=== PATIENT | female | born 1980 ===

== ENCOUNTER 2018-02-13 06:52 | Observation (INO) | payer SELFPAY ==
[2018-02-13 06:59] VITALS: BMI 29.4
[2018-02-13] MEDS ORDERED: Iohexol 240 (50 ml) PO ONE (07:25)
[2018-02-13] MEDS ORDERED: Sodium Chloride 0.9% 1,000 ML IV STA ×2 (07:25→15:43)
[2018-02-13 07:58] LABS: BASO # 0.1 K/uL (0.0-0.2); BASO % 0.6 % (0.0-2.0); EOS % 0.2 % (0.0-4.0); HEMOGLOBIN 13.9 g/dL (12.0-16.0); LYMPH # 2.6 K/uL (1.0-4.3); LYMPH % 16.8 % (20.0-40.0); MEAN CELL VOLUME 89.6 fl (81.0-99.0); MEAN CORPUSCULAR HEMOGLOBIN 30.1 pg (27.0-31.0); MEAN CORPUSCULAR HGB CONC 33.6 g/dL (33.0-37.0); MEAN PLATELET VOLUME 8.1 fl (7.2-11.7); MONO # 1.9 K/uL (0.0-0.8); MONO % 12.4 % (0.0-10.0); NEUT # 10.8 K/uL (1.8-7.0); RBC 4.63 Mil/uL (3.80-5.20); RED CELL DISTRIBUTION WIDTH 12.7 % (11.5-14.5); WHITE BLOOD COUNT 15.4 K/uL (4.8-10.8)
[2018-02-13 08:08] LABS: ALB/GLOB RATIO 1.3 (1.0-2.1); ALBUMIN 4.5 g/dL (3.5-5.0); ALT/SGPT 47 U/L (9-52); AST/SGOT 36 U/L (14-36); BLOOD UREA NITROGEN 8 mg/dl (7-17); CALCIUM 9.3 mg/dL (8.4-10.2); GFR NON-AFRICAN AMERICAN > 60; LIPASE 84 U/L (23-300)
[2018-02-13] MEDS ORDERED: Iohexol 240 (50 ml) ONE (08:10)
[2018-02-13 08:46] LABS: GRANULAR CAST 5 /lpf (0-1); SQUAMOUS EPITHIAL 13 /hpf (0-5); URINE BACTERIA OCC (<OCC); URINE BILIRUBIN NEGATIVE (NEGATIVE); URINE BLOOD NEGATIVE (NEGATIVE); URINE CLARITY SLIGHTY-CLOUDY (Clear); URINE COLOR YELLOW (YELLOW); URINE GLUCOSE (UA) NEG (Normal); URINE LEUKOCYTE ESTERASE NEG Leu/uL (Negative); URINE PROTEIN 30 mg/dL (NEGATIVE); URINE UROBILINOGEN 0.2-1.0 mg/dL (0.2-1.0)
[2018-02-13] MEDS ORDERED: Iohexol 300 100 ML IJ ONE (10:56)
[2018-02-13] MEDS ORDERED: Sodium Chloride 0.9% 100 ML ONE (10:57)
[2018-02-13] MEDS ORDERED: Piperacillin/Tazobact 4.5 GM in Sodium Chloride 0.9% 100 ML IVPB STA (11:47)
--- NOTE | 2018-02-13 11:49 | CT ---
Date of service: 02/13/2018 PROCEDURE: CT Abdomen and Pelvis with contrast HISTORY: LLQ pain x5 days COMPARISON: None. TECHNIQUE: Contrast dose: 98 ml Omnipaque 300 Radiation dose: Total exam DLP = 532 mGy-cm. This CT exam was performed using one or more of the following dose reduction techniques: Automated exposure control, adjustment of the mA and/or kV according to patient size, and/or use of iterative reconstruction technique. FINDINGS: LOWER THORAX: Unremarkable. LIVER: Hepatic steatosis. No gross lesion or ductal dilatation. GALLBLADDER AND BILE DUCTS: Unremarkable. PANCREAS: Unremarkable. No gross lesion or ductal dilatation. SPLEEN: Unremarkable. ADRENALS: Unremarkable. No mass. KIDNEYS AND URETERS: Right lower pole 1.8 cm cyst. No hydronephrosis. No solid mass. VASCULATURE: Unremarkable. No aortic aneurysm. BOWEL: Extensive descending colonic and sigmoid diverticulosis with severe short segment descending colonic wall thickening and surrounding parrot colic stranding. No obstruction. No gross mural thickening. APPENDIX: Normal appendix. PERITONEUM: Small fat containing umbilical hernia. No free fluid. No free air. LYMPH NODES: Unremarkable. No enlarged lymph nodes. BLADDER: Unremarkable. REPRODUCTIVE: Left adnexal mass with solid component measuring 5.6 x 4.6 cm and cystic component measuring 4.6 x 4.6 cm. BONES: No acute fracture. OTHER FINDINGS: None. IMPRESSION: Acute uncomplicated descending colonic diverticulitis. Left adnexal solid and cystic mass with solid component measuring up to 5.6 cm and cystic component measuring up to 4.6 cm[address] Findings conveyed to Dr. Monroy by Dr. Sy at 11:45 a.m. on 02/13/2018.
--- NOTE | 2018-02-13 13:27 | ED PDOC ---
HPI: Abdomen Time Seen by Provider: 02/13/18 07:15 Chief Complaint (Nursing): Abdominal Pain Chief Complaint (Provider): abdominal pain History Per: Patient History/Exam Limitations: no limitations Onset/Duration Of Symptoms: Days (5+) Location Of Pain/Discomfort: LLQ (radiating back) Quality Of Discomfort: Sharp Associated Symptoms: Nausea, Loss Of Appetite Exacerbating Factors: None Alleviating Factors: None Last Bowel Movement: Days Ago (2) Additional Complaint(s): 37yo female c/o left lower abdominal pain radiating to the back associated with loss appetite and dizziness, no prior history of similar pain. Menses normal, regular. Denies urinary symptoms, blood in stool admits to some recent atypical constipation. +loss appetite. Past Medical History Reviewed: Historical Data, Nursing Documentation, Vital Signs Vital Signs: Last Vital Signs Temp 99.1 F 02/13/18 11:53 Pulse 89 02/13/18 11:53 Resp 15 02/13/18 11:53 BP 120/73 02/13/18 11:53 Pulse Ox 100 02/13/18 11:53 - Medical History PMH: No Chronic Diseases - Surgical History Surgical History: No Surg Hx - Family History Family History: States: Unknown Family Hx - Living Arrangements Living Arrangements: With Family - Social History Current smoker - smoking cessation education provided: No - Home Medications Home Medications: Ambulatory Orders Medication Instructions Recorded Vit Calc,Iron,Folic 1 tab PO DAILY 02/13/18 [ Vitamins] - Allergies Allergies/Adverse Reactions: Allergies Allergy/AdvReac Type Severity Reaction Status Date / Time No Known Allergies Allergy Verified 02/13/18 07:12 Review of Systems Constitutional: Negative for: Fever ENT: Negative for: Throat Pain Cardiovascular: Negative for: Chest Pain Respiratory: Negative for: Shortness of Breath Gastrointestinal: Positive for: Nausea, Abdominal Pain, Constipation. Negative for: Diarrhea, Melena, Hematochezia Genitourinary Female: Negative for: Dysuria Musculoskeletal: Negative for: Neck Pain Skin: Negative for: Rash, Lesions Neurological: Negative for: Weakness, Numbness, Dizziness Psych: Negative for: Depression Physical Exam - Reviewed Nursing Documentation Reviewed: Yes Vital Signs Reviewed: Yes - Physical Exam Appears: Positive for: Well, Non-toxic, No Acute Distress Head Exam: Positive for: ATRAUMATIC, NORMAL INSPECTION, NORMOCEPHALIC Skin: Positive for: Normal Color, Warm, DRY Eye Exam: Positive for: EOMI, Normal appearance, PERRL ENT: Positive for: Normal ENT Inspection Neck: Positive for: Normal, Painless ROM Cardiovascular/Chest: Positive for: Regular Rate, Rhythm Respiratory: Positive for: CNT, Normal Breath Sounds Gastrointestinal/Abdominal: Positive for: Normal Exam, Soft Back: Positive for: Normal Inspection Extremity: Positive for: Normal ROM Neurologic/Psych: Positive for: Alert, Oriented - Laboratory Results Result Diagrams: 02/13/18 07:55 02/13/18 07:55 - ECG O2 Sat by Pulse Oximetry: 100 Medical Decision Making Medical Decision Making: CT ordered r/o diverticulitis Accession No. : [id number] Patient Name / ID : THEO SHARMA / [id number] Exam Date : 02/13/2018 11:11:27 ( Approved ) Study Comment : Sex / Age : F / 37Y Creator : Rogelio Mcgovern MD Dictator : Rogelio Mcgovern MD Auto Body Repair Technician : Dope Mixer : Rogelio Mcgovern MD Approver2 : Report Date : 02/13/2018 11:48:14 My Comment : Date of service: 02/13/2018 PROCEDURE: CT Abdomen and Pelvis with contrast HISTORY: LLQ pain x5 days COMPARISON: None. TECHNIQUE: Contrast dose: 98 ml Omnipaque 300 Radiation dose: Total exam DLP = 532 mGy-cm. This CT exam was performed using one or more of the following dose reduction techniques: Automated exposure control, adjustment of the mA and/or kV according to patient size, and/or use of iterative reconstruction technique. FINDINGS: LOWER THORAX: Unremarkable. LIVER: Hepatic steatosis. No gross lesion or ductal dilatation. GALLBLADDER AND BILE DUCTS: Unremarkable. PANCREAS: Unremarkable. No gross lesion or ductal dilatation. SPLEEN: Unremarkable. ADRENALS: Unremarkable. No mass. KIDNEYS AND URETERS: Right lower pole 1.8 cm cyst. No hydronephrosis. No solid mass. VASCULATURE: Unremarkable. No aortic aneurysm. BOWEL: Extensive descending colonic and sigmoid diverticulosis with severe short segment descending colonic wall thickening and surrounding parrot colic stranding. No obstruction. No gross mural thickening. APPENDIX: Normal appendix. PERITONEUM: Small fat containing umbilical hernia. No free fluid. No free air. LYMPH NODES: Unremarkable. No enlarged lymph nodes. BLADDER: Unremarkable. REPRODUCTIVE: Left adnexal mass with solid component measuring 5.6 x 4.6 cm and cystic component measuring 4.6 x 4.6 cm. BONES: No acute fracture. OTHER FINDINGS: None. IMPRESSION: Acute uncomplicated descending colonic diverticulitis. Left adnexal solid and cystic mass with solid component measuring up to 5.6 cm and cystic component measuring up to 4.6 cm[address] Findings conveyed to Dr. Monroy by Dr. Sy at 11:45 a.m. on 02/13/2018. US ordered to eval for ovarian mass Zosyn ordered for diverticulitis Accession No. : [id number] Patient Name / ID : THEO SHARMA / [id number] Exam Date : 02/13/2018 12:59:24 ( Approved ) Study Comment : Sex / Age : F / 37Y Creator : Rogelio Mcgovern MD Dictator : Rogelio Mcgovern MD Auto Body Repair Technician : Dope Mixer : Rogelio Mcgovern MD Approver2 : Report Date : 02/13/2018 14:37:56 My Comment : Date of service: 02/13/2018 HISTORY: L ovarian mass on CT COMPARISON: Correlations made to CT scan of the abdomen pelvis performed earlier the same day. TECHNIQUE: Grayscale, color Doppler and spectral evaluation the pelvis performed transabdominally and transvaginally. FINDINGS: UTERUS: Measures 8.5 x 5.2 x 5.0 cm. Retroverted. Normal in size and appearance. No fibroid or other mass lesion seen. ENDOMETRIUM: Measures 15 mm in diameter. Unremarkable. CERVIX: No cervical abnormality identified. RIGHT OVARY: Measures 3.6 x 2.3 x 3.1 cm. Complex structure within the right ovary measuring 2.3 x 1.3 x 1.9 cm. Normal flow. LEFT OVARY: Measures 5.8 x 6.6 x 3.9 cm. Simple appearing cyst measuring 4.7 x 3.2 x 5.0 cm. Solid rounded structure abutting the left ovary measuring 5.4 x 4.3 x 5.7 cm. Normal flow. FREE FLUID: No significant free fluid noted. OTHER FINDINGS: None. IMPRESSION: As seen on CT, solid left adnexal mass abutting the left ovary measuring 5.7 cm with 5.0 cm cystic structure within the ovary. Complex structure within the right ovary measuring 2.3 cm. 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 lactate 2.3 c/w severe sepsis. IVF ordered and repeat lactate ordered. d/w Dr Bosch GRAIN ROASTER states need diverticulitis to improve prior to any intervention, but GRAIN ROASTER will consult Disposition - Clinical Impression Clinical Impression: Diverticulitis, Leukocytosis, Ovarian mass - Patient ED Disposition Is Patient to be Admitted: Yes Counseled Patient/Family Regarding: Studies Performed, Diagnosis - Disposition Disposition Time: 13:30 Condition: FAIR Forms: [employer] ([employer]) - Pt Status Changed To: Hospital Disposition Of: Observation - POA Present On Arrival: None
--- NOTE | 2018-02-13 14:39 | US ---
Date of service: 02/13/2018 HISTORY: L ovarian mass on CT COMPARISON: Correlations made to CT scan of the abdomen pelvis performed earlier the same day. TECHNIQUE: Grayscale, color Doppler and spectral evaluation the pelvis performed transabdominally and transvaginally. FINDINGS: UTERUS: Measures 8.5 x 5.2 x 5.0 cm. Retroverted. Normal in size and appearance. No fibroid or other mass lesion seen. ENDOMETRIUM: Measures 15 mm in diameter. Unremarkable. CERVIX: No cervical abnormality identified. RIGHT OVARY: Measures 3.6 x 2.3 x 3.1 cm. Complex structure within the right ovary measuring 2.3 x 1.3 x 1.9 cm. Normal flow. LEFT OVARY: Measures 5.8 x 6.6 x 3.9 cm. Simple appearing cyst measuring 4.7 x 3.2 x 5.0 cm. Solid rounded structure abutting the left ovary measuring 5.4 x 4.3 x 5.7 cm. Normal flow. FREE FLUID: No significant free fluid noted. OTHER FINDINGS: None. IMPRESSION: As seen on CT, solid left adnexal mass abutting the left ovary measuring 5.7 cm with 5.0 cm cystic structure within the ovary. Complex structure within the right ovary measuring 2.3 cm.
[2018-02-13 15:30] LABS: VENOUS BLOOD GAS BASE EXCESS 0.5 mmol/L (0.0-2.0); VENOUS BLOOD GAS PCO2 41 mmHg (40-60); VENOUS BLOOD GAS PO2 27 mm/Hg (30-55)
[2018-02-13] MEDS: Sodium Chloride 0.9% 1,000 ML IV SCH (18:01)
[2018-02-13 18:44] LABS: VENOUS BLOOD GAS BASE EXCESS -1.3 mmol/L (0.0-2.0); VENOUS BLOOD GAS PCO2 40 mmHg (40-60); VENOUS BLOOD GAS PO2 31 mm/Hg (30-55); VENOUS BLOOD PH 7.38 (7.32-7.43)
[2018-02-13] MEDS: Piperacillin/Tazobact 3.375 GM in Sodium Chloride 0.9% 100 ML IVPB SCH (21:14)
[2018-02-14] MEDS: Sodium Chloride 0.9% 1,000 ML IV SCH ×2 (03:34→11:48)
[2018-02-14] MEDS: Piperacillin/Tazobact 3.375 GM in Sodium Chloride 0.9% 100 ML IVPB SCH ×4 (03:36→21:23)
[2018-02-14 06:34] LABS: BASO % 0.4 % (0.0-2.0); EOS # 0.1 K/uL (0.0-0.7); EOS % 0.8 % (0.0-4.0); HEMOGLOBIN 11.7 g/dL (12.0-16.0); LYMPH # 2.1 K/uL (1.0-4.3); LYMPH % 17.2 % (20.0-40.0); MEAN CELL VOLUME 89.7 fl (81.0-99.0); MEAN CORPUSCULAR HEMOGLOBIN 29.9 pg (27.0-31.0); MEAN CORPUSCULAR HGB CONC 33.3 g/dL (33.0-37.0); MEAN PLATELET VOLUME 8.2 fl (7.2-11.7); MONO # 1.3 K/uL (0.0-0.8); MONO % 10.6 % (0.0-10.0); NEUT # 8.5 K/uL (1.8-7.0); RBC 3.92 Mil/uL (3.80-5.20); RED CELL DISTRIBUTION WIDTH 12.8 % (11.5-14.5)
[2018-02-14 06:49] LABS: ALB/GLOB RATIO 1.1 (1.0-2.1); ALBUMIN 3.3 g/dL (3.5-5.0); ALT/SGPT 56 U/L (9-52); AST/SGOT 55 U/L (14-36); BLOOD UREA NITROGEN 5 mg/dl (7-17); CALCIUM 8.1 mg/dL (8.4-10.2); GFR NON-AFRICAN AMERICAN > 60
--- NOTE | 2018-02-14 10:42 | CP.PCM.HP ---
History of Present Illness - History of Present Illness History of Present Illness: pt admitted for diverticulitis and left ovarian mass/cyst and adnexal mass. w/ low grade fever. no n/v. + diarrhea. 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 Present on Admission - Present on Admission Any Indicators Present on Admission: No Review of Systems - Constitutional Constitutional: As Per HPI, Fever - Gastrointestinal Gastrointestinal: As Per HPI, Abdominal Pain, Diarrhea Past Patient History - Past Medical History & Family History Past Medical History?: Yes - Past Social History Smoking Status: Current Some Days Smoker - CARDIAC Hx Cardiac Disorders: No - PULMONARY Hx Respiratory Disorders: No - NEUROLOGICAL Hx Neurological Disorder: No - HEENT Hx HEENT Problems: No - RENAL Hx Chronic Kidney Disease: No - ENDOCRINE/METABOLIC Hx Endocrine Disorders: No - HEMATOLOGICAL/ONCOLOGICAL Hx Blood Disorders: No Hx AIDS: No Hx Human Immunodeficiency Virus (HIV): No - INTEGUMENTARY Hx Dermatological Problems: No - MUSCULOSKELETAL/RHEUMATOLOGICAL Hx Musculoskeletal Disorders: No Hx Falls: No - GASTROINTESTINAL Hx Gastrointestinal Disorders: Yes Hx Diverticulitis: Yes Other/Comment: Diverticulosis - GENITOURINARY/GYNECOLOGICAL Hx Genitourinary Disorders: Yes Other/Comment: h/o ectopic more than 3 years ago treated with methotrexate - PSYCHIATRIC Hx Psychophysiologic Disorder: No Hx Substance Use: Yes (use marijuana multiple times a week) - SURGICAL HISTORY Hx Surgeries: No - ANESTHESIA Hx Anesthesia: No Meds Allergies/Adverse Reactions: Allergies Allergy/AdvReac Type Severity Reaction Status Date / Time No Known Allergies Allergy Verified 02/13/18 07:12 Physical Exam - Constitutional Appears: Well, Non-toxic, No Acute Distress - Head Exam Head Exam: ATRAUMATIC, NORMAL INSPECTION, NORMOCEPHALIC - Eye Exam Eye Exam: EOMI, Normal appearance, PERRL Pupil Exam: NORMAL ACCOMODATION, PERRL - ENT Exam ENT Exam: Mucous Membranes Moist, Normal Exam - Neck Exam Neck exam: Positive for: Normal Inspection - Respiratory Exam Respiratory Exam: Clear to Auscultation Bilateral, NORMAL BREATHING PATTERN - Cardiovascular Exam Cardiovascular Exam: REGULAR RHYTHM, RRR, +S1, +S2 - GI/Abdominal Exam GI & Abdominal Exam: Normal Bowel Sounds, Soft. absent: Tenderness - Extremities Exam Extremities exam: Positive for: full ROM, normal capillary refill, normal inspection, pedal pulses present - Back Exam Back exam: FULL ROM, NORMAL INSPECTION - Neurological Exam Neurological exam: Alert, CN II-XII Intact, Normal Gait, Oriented x3, Reflexes Normal - Psychiatric Exam Psychiatric exam: Normal Affect, Normal Mood - Skin Skin Exam: Dry, Intact, Normal Color, Warm Results - Vital Signs Recent Vital Signs: Last Vital Signs Temp 100 F H 02/14/18 05:00 Pulse 80 02/14/18 05:00 Resp 20 02/14/18 05:00 BP 114/73 02/14/18 05:00 Pulse Ox 97 02/14/18 05:00 - Labs Result Diagrams: 02/14/18 05:35 02/14/18 05:35 Labs: Laboratory Results - last 24 hr 02/13/18 02/13/18 02/14/18 15:22 18:36 05:35 WBC 12.0 H RBC 3.92 Hgb 11.7 L D Hct 35.2 MCV 89.7 MCH 29.9 MCHC 33.3 RDW 12.8 Plt Count 309 MPV 8.2 Neut % (Auto) 71.0 Lymph % (Auto) 17.2 L [place] % (Auto) 10.6 H Eos % (Auto) 0.8 Baso % (Auto) 0.4 Neut # (Auto) 8.5 H Lymph # (Auto) 2.1 [place] # (Auto) 1.3 H Eos # (Auto) 0.1 Baso # (Auto) 0.0 pO2 27 L 31 VBG pH 7.40 7.38 VBG pCO2 41 40 VBG HCO3 24.0 22.8 VBG Total CO2 26.7 24.9 VBG O2 Sat (Calc) 54.9 63.9 VBG Base Excess 0.5 -1.3 L VBG Potassium 3.7 3.7 Sodium 136.0 137.0 Chloride 100.0 102.0 Glucose 124 H 83 Lactate 2.3 H 0.7 FiO2 21.0 21.0 Crit Value Called To erwin Monroy do Crit Value Called By Richy jones Crit Value Read Back Y Blood Gas Notified Time 1530 Potassium Carbon Dioxide Anion Gap BUN Creatinine Est GFR ( Amer) Est GFR (Non-Af Amer) Random Glucose Calcium Total Bilirubin AST ALT Alkaline Phosphatase Total Protein Albumin Globulin Albumin/Globulin Ratio Venous Blood Potassium 3.7 3.7 02/14/18 05:35 WBC RBC Hgb Hct MCV MCH MCHC RDW Plt Count MPV Neut % (Auto) Lymph % (Auto) [place] % (Auto) Eos % (Auto) Baso % (Auto) Neut # (Auto) Lymph # (Auto) [place] # (Auto) Eos # (Auto) Baso # (Auto) pO2 VBG pH VBG pCO2 VBG HCO3 VBG Total CO2 VBG O2 Sat (Calc) VBG Base Excess VBG Potassium Sodium 143 Chloride 111 H Glucose Lactate FiO2 Crit Value Called To Crit Value Called By Crit Value Read Back Blood Gas Notified Time Potassium 4.1 Carbon Dioxide 24 Anion Gap 12 BUN 5 L Creatinine 0.7 Est GFR ( Amer) > 60 Est GFR (Non-Af Amer) > 60 Random Glucose 104 Calcium 8.1 L Total Bilirubin 1.8 H AST 55 H D ALT 56 H Alkaline Phosphatase 72 Total Protein 6.3 Albumin 3.3 L D Globulin 3.0 Albumin/Globulin Ratio 1.1 Venous Blood Potassium Assessment & Plan (1) DVT prophylaxis Assessment and Plan: cd and ae hose ambulation Status: Acute (2) Diverticulitis Assessment and Plan: zosyn gi cld, adv as santos monitor bw pain/nausea/fever control ivf Status: Acute (3) Ovarian mass Assessment and Plan: morgue keeper abd/pelvis mri Status: Acute Decision To Admit - Pt Status Changed To: Hospital Disposition Of: Observation - . Bed Request Type: Med/Surg Admitting Physician: Jimi Reynolds
--- NOTE | 2018-02-14 10:50 | CP.PCM.CON ---
Addendum entered and electronically signed by Diana Garcia MD 02/15/18 09:04: Patient will be following up with Dr. Salgado in [place]. Records were given to the patient. Original Note: History of Present Illness - History of Present Illness History of Present Illness: 37 yo female with no pertinent past medical history presented to ED with Left lower quadrant pain. 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 Patient states this pain started last Wednesday on the left abdomen associated with Nausea (NBNB), vomiting and diarrhea. She states that the nausea, vomiting and diarrhea have all now resolved. She reports minimal 2/10 pain left lateral a bdomen associated with movement. Denies frequency, urgency, and dysuria. OB history: Previous vaginal delivery- and care was uncomplicated. 1 Ectopic - resolved with methotrexate. Social: Denies alcohol, illicit drug use and smoking. Family history: Denies family history of ovarian and breast cancer. Medications: no medications being taken. Surgical history : Denies Ros: 12 point system reviewed and negative except for stated above. Past Patient History - Past Medical History & Family History Past Medical History?: Yes - Past Social History Smoking Status: Current Some Days Smoker - CARDIAC Hx Cardiac Disorders: No - PULMONARY Hx Respiratory Disorders: No - NEUROLOGICAL Hx Neurological Disorder: No - HEENT Hx HEENT Problems: No - RENAL Hx Chronic Kidney Disease: No - ENDOCRINE/METABOLIC Hx Endocrine Disorders: No - HEMATOLOGICAL/ONCOLOGICAL Hx Blood Disorders: No Hx AIDS: No Hx Human Immunodeficiency Virus (HIV): No - INTEGUMENTARY Hx Dermatological Problems: No - MUSCULOSKELETAL/RHEUMATOLOGICAL Hx Musculoskeletal Disorders: No Hx Falls: No - GASTROINTESTINAL Hx Gastrointestinal Disorders: Yes Hx Diverticulitis: Yes Other/Comment: Diverticulosis - GENITOURINARY/GYNECOLOGICAL Hx Genitourinary Disorders: Yes Other/Comment: h/o ectopic more than 3 years ago treated with methotrexate - PSYCHIATRIC Hx Psychophysiologic Disorder: No Hx Substance Use: Yes (use marijuana multiple times a week) - SURGICAL HISTORY Hx Surgeries: No - ANESTHESIA Hx Anesthesia: No Meds Allergies/Adverse Reactions: Allergies Allergy/AdvReac Type Severity Reaction Status Date / Time No Known Allergies Allergy Verified 02/13/18 07:12 - Medications Medications: Current Medications Acetaminophen (Tylenol 325mg Tab) 650 mg PO Q4 PRN PRN Reason: Fever >100.4 F Last Admin: 02/13/18 17:58 Dose: 650 mg Sodium Chloride (Sodium Chloride 0.9%) 1,000 mls @ 125 mls/hr IV .Q8H DEIE Stop: 02/15/18 17:36 Last Admin: 02/14/18 03:34 Dose: 125 mls/hr Piperacillin Sod/Tazobactam (Sod 3.375 gm/ Sodium Chloride) 100 mls @ 100 mls/hr IVPB Q6 EDIE; Protocol Last Admin: 02/14/18 10:01 Dose: 100 mls/hr Ketorolac Tromethamine (Toradol) 30 mg IVP Q6 PRN PRN Reason: Pain, moderate (4-7) Last Admin: 02/13/18 21:09 Dose: 30 mg Morphine Sulfate (Morphine) 2 mg IVP Q4 PRN PRN Reason: Pain, severe (8-10) Physical Exam - Constitutional Appears: Well, Non-toxic, No Acute Distress - ENT Exam ENT Exam: Mucous Membranes Moist - Respiratory Exam Respiratory Exam: Clear to Auscultation Bilateral, NORMAL BREATHING PATTERN. absent: Prolonged Expiratory Phase, Rales, Rhonchi, Wheezes, Respiratory Distr ess, Stridor - Cardiovascular Exam Cardiovascular Exam: REGULAR RHYTHM, RRR, +S1, +S2. absent: Diastolic murmur, Gallop, JVD, Rubs, +S4, Systolic Murmur - GI/Abdominal Exam GI & Abdominal Exam: Normal Bowel Sounds, Soft, Tenderness (Left Quadrant tenderness on palpation. No rebound appreciated. ). absent: Distended, Firm, Guarding, Rebound - Extremities Exam Extremities exam: Positive for: normal inspection. Negative for: calf tenderness, joint swelling, pedal edema - Neurological Exam Neurological exam: Alert, Oriented x3 - Skin Skin Exam: Dry, Intact, Normal Color, Warm Results - Vital Signs Recent Vital Signs: Last Vital Signs Temp 100 F H 02/14/18 05:00 Pulse 80 02/14/18 05:00 Resp 20 02/14/18 05:00 BP 114/73 02/14/18 05:00 Pulse Ox 97 02/14/18 05:00 - Labs Result Diagrams: 02/14/18 05:35 02/14/18 05:35 Labs: Laboratory Results - last 24 hr 02/13/18 02/13/18 02/14/18 15:22 18:36 05:35 WBC 12.0 H RBC 3.92 Hgb 11.7 L D Hct 35.2 MCV 89.7 MCH 29.9 MCHC 33.3 RDW 12.8 Plt Count 309 MPV 8.2 Neut % (Auto) 71.0 Lymph % (Auto) 17.2 L [place] % (Auto) 10.6 H Eos % (Auto) 0.8 Baso % (Auto) 0.4 Neut # (Auto) 8.5 H Lymph # (Auto) 2.1 [place] # (Auto) 1.3 H Eos # (Auto) 0.1 Baso # (Auto) 0.0 pO2 27 L 31 VBG pH 7.40 7.38 VBG pCO2 41 40 VBG HCO3 24.0 22.8 VBG Total CO2 26.7 24.9 VBG O2 Sat (Calc) 54.9 63.9 VBG Base Excess 0.5 -1.3 L VBG Potassium 3.7 3.7 Sodium 136.0 137.0 Chloride 100.0 102.0 Glucose 124 H 83 Lactate 2.3 H 0.7 FiO2 21.0 21.0 Crit Value Called To erwin Monroy do Crit Value Called By Richy jones Crit Value Read Back Y Blood Gas Notified Time 1530 Potassium Carbon Dioxide Anion Gap BUN Creatinine Est GFR ( Amer) Est GFR (Non-Af Amer) Random Glucose Calcium Total Bilirubin AST ALT Alkaline Phosphatase Total Protein Albumin Globulin Albumin/Globulin Ratio Venous Blood Potassium 3.7 3.7 02/14/18 05:35 WBC RBC Hgb Hct MCV MCH MCHC RDW Plt Count MPV Neut % (Auto) Lymph % (Auto) [place] % (Auto) Eos % (Auto) Baso % (Auto) Neut # (Auto) Lymph # (Auto) [place] # (Auto) Eos # (Auto) Baso # (Auto) pO2 VBG pH VBG pCO2 VBG HCO3 VBG Total CO2 VBG O2 Sat (Calc) VBG Base Excess VBG Potassium Sodium 143 Chloride 111 H Glucose Lactate FiO2 Crit Value Called To Crit Value Called By Crit Value Read Back Blood Gas Notified Time Potassium 4.1 Carbon Dioxide 24 Anion Gap 12 BUN 5 L Creatinine 0.7 Est GFR ( Amer) > 60 Est GFR (Non-Af Amer) > 60 Random Glucose 104 Calcium 8.1 L Total Bilirubin 1.8 H AST 55 H D ALT 56 H Alkaline Phosphatase 72 Total Protein 6.3 Albumin 3.3 L D Globulin 3.0 Albumin/Globulin Ratio 1.1 Venous Blood Potassium Assessment & Plan - Assessment and Plan (Free Text) Assessment: 37 yo female with no pertinent past medical history presented to ED with Left lower quadrant pain found to have a Left adnexal cassandra and cystic mass on CT scan of the abdomen. Plan: 1. Left Adnexal Solid and cystic mass - CT scan of abdomen - Left adnexal solid (5.6cm) and cystic mass (4.6cm). - test is negative. - As patient is currently stable and not having active complaint of pain, patient can follow up with outpatient management.
[2018-02-14] MEDS ORDERED: Gadodiamide 287 MG/ML VIAL (15ML) IV ONE (14:13)
[2018-02-14] MEDS ORDERED: Sodium Chloride 0.9% 50 ML IV ONE (14:13)
--- NOTE | 2018-02-14 17:09 | MRI ---
Date of service: 02/14/2018 PROCEDURE: MRI pelvis HISTORY: ovarian mass, diverticulitis COMPARISON: Pelvic ultrasound examination 02/13/2018 TECHNIQUE: Multiplanar, multi sequence imaging of the pelvis was performed both with and without intravenous gadolinium administration. FINDINGS: The uterus is retroverted. There is no definite uterine mass. The junctional zone is normal in width. The endometrium is unremarkable. The cervix is normal in appearance. Several very small cervical nabothian cysts are incidentally noted. The right ovary is identified and is unremarkable in appearance. In the left adnexa, there is a large mass with characteristic cyst signal, measuring 4.3 x 5.5 by 4.1 cm. It is homogeneous low on T1 images and high on T2 weighted images. There is a thin rim of high signal on T1 post gadolinium fat sat images (series 4 close) which could represent normal ovarian parenchyma. However, this is uncertain. Posterior and slightly caudal to this cystic mass is a 2nd mass measuring approximately 3.4 x 4.2 x 5.0 cm. There is curvilinear peripheral high signal about portions of this mass, best appreciated on series 6. This is seen on images 10 through 13. This likely represents peripheral enhancement. There is a rounded high signal component on T2 weighted images of the far caudal aspect of this mass, seen on series 5, image 17 and series 6, image 15. This measures approximately 9 mm in diameter. . This corresponds to a shadowing complex mass, likely solid, on ultrasound examination and to a mass with high attenuation on CT examination of 02/13/2018. This is intermediate on pre gadolinium T1 and low in signal on pre gadolinium T2 weighted images. The signal characteristics are atypical. They are unlikely to reflect an endometrioma. The possibility of a solid ovarian neoplasm with atypical signal characteristics must be considered. The vagina is unremarkable in appearance. There is trace fluid in the recto uterine pouch. There is no generalized ascites. There is no pelvic sidewall lymphadenopathy. The urinary bladder is grossly unremarkable. The urethra is normal in appearance. The marrow signal of the visualized osseous structures is within normal limits. IMPRESSION: Left ovarian or paraovarian cyst, 5.5 cm greatest dimension. Left adnexal mass, 5.0 cm greatest dimension. There is mildly irregular curvilinear peripheral enhancement. The mass has atypical signal characteristics, suggestive of hemorrhagic or proteinaceous content within a cyst though this does not appear to represent a cyst on ultrasound examination. Given the solid appearance on ultrasound examination and the concerning features of the MRI appearance, possibility of a solid ovarian neoplasm must be considered. No other concerning findings.
--- NOTE | 2018-02-14 17:17 | MRI ---
Date of service: 02/14/2018 PROCEDURE: MRI Abdomen with and without contrast HISTORY: Ovarian mass. Acute diverticulitis of the descending colon. COMPARISON: None available. TECHNIQUE: Multisequence, multiplanar MR images of the abdomen with and without gadolinium contrast enhancement. FINDINGS: LIVER: Normal size and contour. Mild diffuse loss of signal intensity on opposed phase images consistent with the fatty infiltration. Scattered very small high T2 signal masses within the right and left lobe common nonspecific but possibly small cysts. No biliary dilatation. No evidence of portal venous thrombosis. No abnormal enhancement. GALLBLADDER: Unremarkable. SPLEEN: Unremarkable. PANCREAS: Unremarkable. No abnormal enhancement. ADRENALS: Unremarkable. KIDNEYS: Bilobed cyst versus 2 adjacent cysts in the lower pole right kidney, 1.8 x 2.2 cm. No other renal mass. No hydronephrosis. AORTA: No aneurysm. ASCITES: Trace fluid in the left paracolic gutter likely related to known diverticulitis. PERITONEUM: Unremarkable. LYMPH NODES: Unremarkable. OTHER FINDINGS: Inflammatory change around the descending colon in its mid aspect consistent with known diverticulitis as demonstrated on CT examination of the previous day. Mural thickening of the colon associated with this focal diverticulitis. IMPRESSION: Acute diverticulitis of the mid descending colon. Trace fluid in left pericolic gutter. Additional minor findings as above..
[2018-02-14] MEDS: Lactobacillus Acidophilus 500 MU Cap PO SCH (18:52)
[2018-02-15] MEDS: Sodium Chloride 0.9% 1,000 ML IV SCH (00:24)
[2018-02-15] MEDS: Piperacillin/Tazobact 3.375 GM in Sodium Chloride 0.9% 100 ML IVPB SCH ×2 (04:08→09:00)
[2018-02-15 07:13] LABS: BASO % 0.2 % (0.0-2.0); EOS # 0.2 K/uL (0.0-0.7); EOS % 2.3 % (0.0-4.0); HEMOGLOBIN 11.6 g/dL (12.0-16.0); LYMPH # 2.5 K/uL (1.0-4.3); LYMPH % 32.1 % (20.0-40.0); MEAN CORPUSCULAR HEMOGLOBIN 31.1 pg (27.0-31.0); MEAN PLATELET VOLUME 8.6 fl (7.2-11.7); MONO % 13.5 % (0.0-10.0); NEUT % 51.9 % (50.0-75.0); NRBC % 0.1 % (0.0-0.0); RBC 3.72 Mil/uL (3.80-5.20); RED CELL DISTRIBUTION WIDTH 12.2 % (11.5-14.5); WHITE BLOOD COUNT 7.8 K/uL (4.8-10.8)
[2018-02-15 07:42] LABS: ALB/GLOB RATIO 1.1 (1.0-2.1); ALBUMIN 3.3 g/dL (3.5-5.0); ALT/SGPT 62 U/L (9-52); AST/SGOT 46 U/L (14-36); BLOOD UREA NITROGEN 7 mg/dl (7-17); CALCIUM 8.6 mg/dL (8.4-10.2); GFR NON-AFRICAN AMERICAN > 60
--- NOTE | 2018-02-15 08:37 | CON ---
DATE: 02/13/2018 REASON FOR CONSULTATION: Diverticulitis. HISTORY OF PRESENT ILLNESS: This is a pleasant 37-year-old female with a history of diverticulosis, now comes in with left lower quadrant pain, abdominal pain and discomfort with fever and chills, all of which have resolved. No nausea or vomiting at this point. No weight loss. Currently lying in bed comfortable, in no apparent distress. PAST MEDICAL HISTORY: As above. PAST SURGICAL HISTORY: As above. MEDICATIONS: Have been reviewed. REVIEW OF SYSTEMS: All other systems have been reviewed and negative apart from the HPI. PHYSICAL EXAMINATION: GENERAL: A middle-aged female, lying in bed comfortably, in no apparent distress. VITAL SIGNS: Here in the hospital are grossly unremarkable. HEENT: Head is normocephalic and atraumatic. Eyes, pupils are equally reactive to light bilaterally. No conjunctival pallor or icterus. NECK: Supple. Normal range of motion. No lymphadenopathy appreciated. LUNGS: Coarse breath sounds bilaterally. HEART: S1 and S2. Regular rate and rhythm. No murmurs appreciated. ABDOMEN: Soft and nontender. Bowel sounds are present. No rebound, no guarding. EXTREMITIES: Pulses felt bilaterally. SKIN: Warm, dry, and intact. NEUROLOGIC: A and O x3. LABORATORY DATA: Labs and radiology have been reviewed. White count is 15.4, hemoglobin 13.1, and hematocrit of 41.4. CAT scan shows sigmoid diverticulitis as well as a right adnexal mass. ASSESSMENT AND PLAN: This is a 37-year-old female with diverticulitis and a mass in the ovaries. Plan is for antibiotics for the 14 days. Visit as an outpatient 6 to 8 weeks. Recommend SAFETY COUNSELOR input. Thank you for the consult. Sang Gonzalez MD/ PhD cc: Lamont Wakefield
[2018-02-15] MEDS: Lactobacillus Acidophilus 500 MU Cap PO SCH (09:00)
[2018-02-15 09:07] VITALS: BP 125/71; PULSE 77; RESP 16; TEMP 97.9; O2SAT 100
--- NOTE | 2018-02-15 09:20 | CP.PCM.PN ---
Subjective - Date & Time of Evaluation Date of Evaluation: 02/15/18 Time of Evaluation: 09:12 - Subjective Subjective: pt doing well. less pain. no n/v/d. bw noted. lft remain slightly elevated. wbc normalized. pt wishes to be dc [facility] and spend time with her family before going for further tx. Objective - Vital Signs/Intake and Output Vital Signs (last 24 hours): Temp Pulse Resp BP Pulse Ox 97.9 F 77 16 125/71 100 02/15/18 09:00 02/15/18 09:00 02/15/18 09:00 02/15/18 09:00 02/15/18 09:00 - Medications Medications: Current Medications Acetaminophen (Tylenol 325mg Tab) 650 mg PO Q4 PRN PRN Reason: Fever >100.4 F Last Admin: 02/13/18 17:58 Dose: 650 mg Sodium Chloride (Sodium Chloride 0.9%) 1,000 mls @ 125 mls/hr IV .Q8H EDIE Stop: 02/15/18 17:36 Last Admin: 02/15/18 00:24 Dose: 125 mls/hr Piperacillin Sod/Tazobactam (Sod 3.375 gm/ Sodium Chloride) 100 mls @ 100 mls/hr IVPB Q6 EDIE; Protocol Last Admin: 02/15/18 09:00 Dose: 100 mls/hr Ketorolac Tromethamine (Toradol) 30 mg IVP Q6 PRN PRN Reason: Pain, moderate (4-7) Last Admin: 02/14/18 20:08 Dose: 30 mg Lactobacillus Acidophilus (Bacid Acidophilus) 1 cap PO BID EDIE Last Admin: 02/15/18 09:00 Dose: 1 cap Morphine Sulfate (Morphine) 2 mg IVP Q4 PRN PRN Reason: Pain, severe (8-10) - Labs Labs: 02/15/18 06:00 02/15/18 06:00 - Constitutional Appears: Well, Non-toxic, No Acute Distress - Head Exam Head Exam: ATRAUMATIC, NORMAL INSPECTION, NORMOCEPHALIC - Eye Exam Eye Exam: EOMI, Normal appearance, PERRL Pupil Exam: NORMAL ACCOMODATION, PERRL - ENT Exam ENT Exam: Mucous Membranes Moist, Normal Exam - Neck Exam Neck Exam: Full ROM, Normal Inspection. absent: Lymphadenopathy - Respiratory Exam Respiratory Exam: Clear to Ausculation Bilateral, NORMAL BREATHING PATTERN - Cardiovascular Exam Cardiovascular Exam: REGULAR RHYTHM, RRR, +S1, +S2. absent: Murmur - GI/Abdominal Exam GI & Abdominal Exam: Soft, Normal Bowel Sounds. absent: Tenderness - Extremities Exam Extremities Exam: Full ROM, Normal Capillary Refill, Normal Inspection. absent: Joint Swelling, Pedal Edema - Back Exam Back Exam: NORMAL INSPECTION - Neurological Exam Neurological Exam: Alert, Awake, CN II-XII Intact, Normal Gait, Oriented x3 - Psychiatric Exam Psychiatric exam: Normal Affect, Normal Mood - Skin Skin Exam: Dry, Intact, Normal Color, Warm Assessment and Plan (1) DVT prophylaxis Status: Acute (2) Diverticulitis Status: Acute (3) Ovarian mass Status: Acute - Assessment and Plan (Free Text) Assessment: (1) DVT prophylaxis Assessment and Plan: scd and ae hose ambulation Status: Acute (2) Diverticulitis Assessment and Plan: zosyn gi santos solids monitor bw pain/nausea/fever control ivf Status: Acute (3) Ovarian mass Assessment and Plan: 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.
--- NOTE | 2018-02-15 11:55 | CP.PCM.DIS ---
Provider - Provider Date of Admission: 02/13/18 16:01 Attending physician: Jimi Reynolds MD Time Spent in preparation of Discharge (in minutes): 30 Diagnosis - Discharge Diagnosis (1) DVT prophylaxis Status: Acute (2) Diverticulitis Status: Acute (3) Ovarian mass Status: Acute Hospital Course - Lab Results Lab Results: Micro Results 02/13/18 15:42 Blood Blood Culture - Preliminary NO GROWTH AFTER 24 HOURS 02/13/18 15:42 Blood Blood Culture - Preliminary NO GROWTH AFTER 24 HOURS Most Recent Lab Values WBC 7.8 K/uL (4.8-10.8) 02/15/18 06:00 RBC 3.72 Mil/uL (3.80-5.20) L 02/15/18 06:00 Hgb 11.6 g/dL (12.0-16.0) L 02/15/18 06:00 Hct 33.1 % (34.0-47.0) L 02/15/18 06:00 MCV 89.0 fl (81.0-99.0) 02/15/18 06:00 MCH 31.1 pg (27.0-31.0) H 02/15/18 06:00 MCHC 35.0 g/dL (33.0-37.0) 02/15/18 06:00 RDW 12.2 % (11.5-14.5) 02/15/18 06:00 Plt Count 318 K/uL (130-400) 02/15/18 06:00 MPV 8.6 fl (7.2-11.7) 02/15/18 06:00 Neut % (Auto) 51.9 % (50.0-75.0) 02/15/18 06:00 Lymph % (Auto) 32.1 % (20.0-40.0) 02/15/18 06:00 Turner % (Auto) 13.5 % (0.0-10.0) H 02/15/18 06:00 Eos % (Auto) 2.3 % (0.0-4.0) 02/15/18 06:00 Baso % (Auto) 0.2 % (0.0-2.0) 02/15/18 06:00 Neut # (Auto) 4.0 K/uL (1.8-7.0) 02/15/18 06:00 Lymph # (Auto) 2.5 K/uL (1.0-4.3) 02/15/18 06:00 Turner # (Auto) 1.0 K/uL (0.0-0.8) H 02/15/18 06:00 Eos # (Auto) 0.2 K/uL (0.0-0.7) 02/15/18 06:00 Baso # (Auto) 0.0 K/uL (0.0-0.2) 02/15/18 06:00 pO2 31 mm/Hg (30-55) 02/13/18 18:36 VBG pH 7.38 (7.32-7.43) 02/13/18 18:36 VBG pCO2 40 mmHg (40-60) 02/13/18 18:36 VBG HCO3 22.8 mmol/L 02/13/18 18:36 VBG Total CO2 24.9 mmol/L (22-28) 02/13/18 18:36 VBG O2 Sat (Calc) 63.9 % (40-65) 02/13/18 18:36 VBG Base Excess -1.3 mmol/L (0.0-2.0) L 02/13/18 18:36 VBG Potassium 3.7 mmol/L (3.6-5.2) 02/13/18 18:36 Sodium 137.0 mmol/L (132-148) 02/13/18 18:36 Chloride 102.0 mmol/L (98-107) 02/13/18 18:36 Glucose 83 mg/dL (65-105) 02/13/18 18:36 Lactate 0.7 mmol/L (0.7-2.1) 02/13/18 18:36 FiO2 21.0 % 02/13/18 18:36 Crit Value Called To erwin Monroy do 02/13/18 15:22 Crit Value Called By Richy jones 02/13/18 15:22 Crit Value Read Back Y 02/13/18 15:22 Blood Gas Notified Time 1530 02/13/18 15:22 Sodium 142 mmol/l (132-148) 02/15/18 06:00 Potassium 3.9 MMOL/L (3.6-5.0) 02/15/18 06:00 Chloride 110 mmol/L (98-107) H 02/15/18 06:00 Carbon Dioxide 24 mmol/L (22-30) 02/15/18 06:00 Anion Gap 12 (10-20) 02/15/18 06:00 BUN 7 mg/dl (7-17) 02/15/18 06:00 Creatinine 0.8 mg/dl (0.7-1.2) 02/15/18 06:00 Est GFR ( Amer) > 60 02/15/18 06:00 Est GFR (Non-Af Amer) > 60 02/15/18 06:00 Random Glucose 100 mg/dL (65-105) 02/15/18 06:00 Calcium 8.6 mg/dL (8.4-10.2) 02/15/18 06:00 Phosphorus 3.4 mg/dl (2.5-4.5) 02/15/18 06:00 Magnesium 2.1 MG/DL (1.6-2.3) 02/15/18 06:00 Total Bilirubin 0.8 mg/dl (0.2-1.3) 02/15/18 06:00 AST 46 U/L (14-36) H 02/15/18 06:00 ALT 62 U/L (9-52) H 02/15/18 06:00 Alkaline Phosphatase 116 U/L (38-126) 02/15/18 06:00 Total Protein 6.4 G/DL (6.3-8.2) 02/15/18 06:00 Albumin 3.3 g/dL (3.5-5.0) L 02/15/18 06:00 Globulin 3.1 gm/dL (2.2-3.9) 02/15/18 06:00 Albumin/Globulin Ratio 1.1 (1.0-2.1) 02/15/18 06:00 Lipase 84 U/L (23-300) 02/13/18 07:55 CA 125 Antigen 12.6 U/mL (0-35) 02/14/18 05:35 Venous Blood Potassium 3.7 mmol/L (3.6-5.2) 02/13/18 18:36 Urine Color Yellow (YELLOW) 02/13/18 08:00 Urine Clarity Slighty-cloudy (Clear) 02/13/18 08:00 Urine pH 7.0 (5.0-8.0) 02/13/18 08:00 Ur Specific [place] 1.023 (1.003-1.030) 02/13/18 08:00 Urine Protein 30 mg/dL (NEGATIVE) 02/13/18 08:00 Urine Glucose (UA) Neg mg/dL (Normal) 02/13/18 08:00 Urine Ketones Negative mg/dL (NEGATIVE) 02/13/18 08:00 Urine Blood Negative (NEGATIVE) 02/13/18 08:00 Urine Nitrate Negative (NEGATIVE) 02/13/18 08:00 Urine Bilirubin Negative (NEGATIVE) 02/13/18 08:00 Urine Urobilinogen 0.2-1.0 mg/dL (0.2-1.0) 02/13/18 08:00 Ur Leukocyte Esterase Neg Enrrique/uL (Negative) 02/13/18 08:00 Urine RBC (Auto) < 1 /hpf (0-3) 02/13/18 08:00 Urine Microscopic WBC 2 /hpf (0-5) 02/13/18 08:00 Ur Squamous Epith Cells 13 /hpf (0-5) H 02/13/18 08:00 Urine Bacteria Occ (<OCC) H 02/13/18 08:00 Granular Casts (Auto) 5 /lpf (0-1) 02/13/18 08:00 - Hospital Course Hospital Course: iv anbx, gi, principal network architect, mri, us, ct Discharge Exam - Head Exam Head Exam: ATRAUMATIC, NORMAL INSPECTION, NORMOCEPHALIC - Eye Exam Eye Exam: EOMI, Normal appearance, PERRL Pupil Exam: NORMAL ACCOMODATION, PERRL - Respiratory Exam Respiratory Exam: NORMAL BREATHING PATTERN, UNREMARKABLE - Cardiovascular Exam Cardiovascular Exam: REGULAR RHYTHM, RRR, +S1, +S2 - GI/Abdominal Exam GI & Abdominal Exam: Normal Bowel Sounds, Soft, Unremarkable - Exam Bimanual exam: NORMAL BIMANUAL EXAM - Extremities Exam Extremities exam: full ROM, normal capillary refill, normal inspection, pedal pulses present - Neurological Exam Neurological exam: Alert, CN II-XII Intact, Normal Gait, Oriented x3, Reflexes Normal - Psychiatric Exam Psychiatric exam: Normal Affect, Normal Mood - Skin Skin Exam: Dry, Intact, Normal Color, Warm Discharge Plan - Follow Up Plan Condition: FAIR Disposition: AGAINST MEDICAL ADVICE Instructions: Diverticulitis, Quitting Smoking Additional Instructions: Follow up today-contact [facility] [place] for further instructions. Remember to take all copies of labs/reports with you to hospital. Last antibiotic given at 9a.m.(Zosyn). No activity restrictions. arrangements for [facility] direct admit fional dx-left adnexal mass, left ovarian cyst, diverticulitis signed [facility]a after discussing risks/benefits will follow w/ pt
== END 2018-02-15 10:05 | disposition left against medical advice (07) ==
LOC: H.ER 06:52 → H.ERHOLD 16:01 → H.PEDS 16:35
PROVIDERS: ADMIT Family Medicine; ATTEND Family Medicine
DX: K57.32 Diverticulitis of large intestine without perforation or abscess without bleeding (principal); N83.9 Noninflammatory disorder of ovary, fallopian tube and broad ligament, unspecified; F12.90 Cannabis use, unspecified, uncomplicated; F17.210 Nicotine dependence, cigarettes, uncomplicated
CPT/HCPCS: 36415; 72197; 74177; 74183; 76830; 76856; 80053; 81003; 81025; 82803; 83690; 83735; 84100; 85025; 86304; 87040; 96361; 96365; 96366; 96375; 96376; 99285; A9579; G0378; J1885; J2543; J7030; Q9966; Q9967